=== PATIENT | female | born 1940 | race Caucasian/White ===

== ENCOUNTER 2021-12-22 09:52 | Observation (INO) ==
[2021-12-22] MEDS ORDERED: IOPAMIDOL 100 ML BOTTLE IV ONE (09:53)
--- NOTE | 2021-12-22 09:55 | Emergency Department Note ---
HPI General Chief complaint: Neuro Symptoms/Deficit Stated complaint: cognative issues Time Seen by Provider: 12/22/21 09:55 Source: patient and family (Granddaughter) Mode of arrival: ambulatory Limitations: other (Expressive aphasia) History of Present Illness HPI Narrative: Narrative: History is primarily from the patient's granddaughter. Patient was able to answer a few limited questions. 3 days ago on Friday patient was unable to start her car initially her son thought it was a mechanical issue but then realized later that it was the patient having difficulties figuring out how to start the car or manually starting the car. Last night 1 day ago a neighbor said that the patient called but he had difficulty making sense of what she was saying. The son went over and performed a Covid test and that was negative. The granddaughter spoke to her and recognize she was having cognitive issues. She was taken last night to the urgent care according to the granddaughter where they were told he needed to come to the emergency department. Patient denies any pain associated with this. Symptoms are constant and either stable or worse with time. Nothing makes it better. Not associated with any kn own trauma. No associated weakness in the upper or lower extremities. The daughter states the patient is healthy and has no significant medical problems. Review of the chart reveals obstructive sleep apnea, cardiac murmur, hyperlipidemia, hypertension, GERD, osteoporosis. Related Data Home Medications Medication Instructions Recorded Confirmed Flaxseed PO 09/29/15 09/26/21 Wheat germ PO 09/29/15 09/26/21 ascorbate calcium (vitamin C) 500 See Dose Instructions PO .COMPLEX 09/29/15 09/26/21 mg tablet harding's yeast PO 09/29/15 09/26/21 cholecalciferol (vitamin D3) 25 1,000 unit PO QDAY 09/29/15 09/26/21 mcg (1,000 unit) capsule cyanocobalamin (vitamin B-12) 500 500 mcg PO QDAY 09/29/15 09/26/21 mcg tablet magnesium PO 09/29/15 09/26/21 multivitamin 1 tab-cap PO QDAY 09/29/15 09/26/21 vitamin B complex See Dose Instructions PO .COMPLEX 09/29/15 09/26/21 bran each PO 04/03/20 09/26/21 whey protein conc-amino acids 20 ea PO 02/28/21 09/26/21 gram-120 kcal/27.6 gram oral powder melatonin 5 mg capsule mg PO 07/18/21 09/26/21 Previous Rx's Medication Instructions Recorded zolpidem 5 mg tablet (Ambien) 5 mg PO ONCE PRN #2 tab 10/24/21 Allergies Allergy/AdvReac Type Severity Reaction Status Date / Time Penicillins Allergy Severe Urticarial Verified 09/26/21 08:19 eruption risedronate sodium Allergy Severe chest Verified 09/26/21 08:19 [From Actonel] pain/foot pain/gingival pain/flu sxs Review of Systems ROS ROS Narrative: Narrative: Limitations: ROS unobtainable due to patients medical condition (Patient has expressive aphasia.) [facility] Narrative Patient History Narrative: Narrative: Medical/Surgical/Family History All Active Problems (Updated 12/22/21 @ 14:57 by Feliberto Harden MD) Expressive aphasia (Acute) Neck pain on left side (Chronic) Nasal polyps (Chronic) Obstructive sleep apnea (Chronic) Gasping for breath (Chronic) Hypersomnia (Chronic) Pain of right hip (Acute) Murmur, cardiac (Acute) Immunization deficiency (Acute) Mixed hyperlipidemia (Acute) Insomnia (Chronic) Pancreatitis (Chronic) Migraines (Chronic) High blood pressure (Chronic) Chest discomfort (Chronic ~2019) Anxiety (Chronic ~2006) Post herpetic neuralgia (Chronic) GERD (gastroesophageal reflux disease) (Chronic) Fall from slip, trip, or stumble (Chronic) Contusion of forehead (Chronic) Abrasion of forehead (Chronic) Contusion of knee, left (Chronic) Contusion of knee, right (Chronic) Vitamin D deficiency (Chronic) Osteoarthritis (Chronic) Female genital prolapse (Chronic) Encounter for Health Maintenance Examination in Adult (Chronic) Osteoporosis (Chronic) Neck pain (Chronic) Migraine (Chronic) Hiatal hernia (Chronic) Hemorrhoids (Chronic) Esophageal stricture (Chronic) Medical History Abrasion of forehead Anxiety (~2006) Pt states she has been in a lawsuit since 2006 and that has caused much anxiety. Chest discomfort (~2019) Contusion of forehead Contusion of knee, left Contusion of knee, right Encounter for Health Maintenance Examination in Adult Esophageal stricture Seen on EGD 02/2009; stable with hygienic measures. Fall from slip, trip, or stumble Female genital prolapse Gasping for breath GERD (gastroesophageal reflux disease) Hemorrhoids Colonoscopy 07/03/11-Dr. Medley-Inflamed inernal hemorrhoids; otherwise normal colon, No rescreen unless new clinical issues arises. Herpes zoster s/p episode in 2008 Hiatal hernia EGD 02/2009 showing hiatal hernia;stable with hygienic measures. High blood pressure Hypersomnia Immunization deficiency Insomnia Migraine Hx of migraine headaches;usually takes #2 tylenol and #1 Benadryl. Migraines Murmur, cardiac Neck pain Cervical neck pain. Obstructive sleep apnea Osteoarthritis Osteoporosis By bone density 04/2009 with T-score at spine -3.8 and hip -1.3, stable vitamin D level at 68.0 in 2009. Declines rescreening or further medicine. Pain of right hip Pancreatitis Post herpetic neuralgia Vitamin D deficiency Surgical History History of tonsillectomy x2- 1944 and 1960 Hx of cataract surgery 08/2011-Bilateral done at [facility]. Hx of colonoscopy (07/03/11) Showed only hemorrhoids. No need to rescreen unless clinical issues. Hx of esophagogastroduodenoscopy (03/15/09) Showing hiatal hernia, esophagitis, and small stricure. Family History Mother Malignant neoplasm of lung Asbestosis and lung cancer, was a non-smoker High cholesterol Sister Diabetes mellitus Half sister insulin-dependent High cholesterol Heart attack Social History Smoking Status: Never smoker Alcohol Intake Frequency: does not drink Substance Use: does not use Exam Narrative Narrative: Narrative: General is a well-developed elderly female lying in bed calmly in no apparent distress. She was able to answer a couple of straightforward questions such as her name but beyond that she struggled to communicate. When asked her name she said Mindi. When asked the date she struggled and did not answer. When asked to the president was she struggled and did not answer. I did not detect any facial weakness nor weakness in the upper or lower extremities left or right. General Limitations: other (Expressive aphasia) General appearance: Present alert and in distress Head Head: Present atraumatic and normocephalic Neck Neck: Present normal inspection, full ROM, trachea midline and other (I did not hear any carotid bruits.); Absent tenderness or meningismus Chest Chest: Present normal inspection and symmetric chest wall rise; Absent tenderness Respiratory Respiratory: Present normal lung sounds bilaterally; Absent respiratory distress Cardiovascular Cardiovascular: Present regular rate, normal rhythm and systolic murmur (III/) Adbominal Abdominal: Present soft; Absent distention or tenderness Extremities Extremities: Present normal inspection and other (Ambulated. No discernible weakness in upper extremity vp outcomes or lower extremity push pull.) Neurological Neurological: Present alert and other (Unable to express herself. Unable to answer simple questions beyond what her name was.) Psychiatric Psychiatric: Present normal affect Skin Skin: Present warm (WNL) and dry Course Reevaluation(s) Reevaluation #1: Patient feeling the same. Reviewed lab and CT results with patient and granddaughter. Advised that I would speak to the hospitalist regarding possible admission. Time: 13:21 Consultations Consultation #1: Please call to hospitalist to discuss admission of this patient with acute expressive aphasia. Time: 13:21 Consultation #2: Discussed with Dr. waters the hospitalist. He requested I order a CT angio of the head and neck to rule out large vessel occlusion and that he will evaluate the patient for admission subsequently. Time: 13:49 Vital Signs Vital signs: Vital Signs Temperature 97.6 F 12/22/21 09:53 Pulse Rate 79 12/22/21 09:53 Respiratory Rate 16 12/22/21 09:53 Pulse Oximetry (%) 95 12/22/21 09:53 Temperature 97.7 F 12/22/21 16:05 Pulse Rate 61 12/22/21 16:06 Respiratory Rate 13 12/22/21 16:06 Blood Pressure 175/90 12/22/21 16:05 Pulse Oximetry (%) 96 12/22/21 16:06 [facility] Narrative Medical decision making narrative: Narrative: Elderly female with 3-day history of neurological difficulties presents to the emerge department for further evaluation. She was unable to start her car for noncar reasons. She is unable to answer nearly all questions. Differential diagnosis includes acute cerebrovascular accident, intracranial bleed, brain tumor, metabolic abnormality, encephalopathy, other EKG was obtained and it was unremarkable. CT scan did not reveal problem: IMPRESSION: Age-related degenerative changes with atrophy and white matter ischemia or degeneration. No acute abnormality is detected Urinalysis was negative. Fast exam was negative. NIHSS score was 1. Troponin was less than 0.01. Sodium was 136 potassium 3.9 chloride 101 and bicarb 24. BUN was 21 creatinine was 0.6. Glucose was 103. WBC was 8.4 with a hemoglobin of 17.5. My impression is the patient has an acute expressive aphasia. Case was discussed with the hospitalist. He requested a CT angio of the head and neck. Those were performed and both came back showing clear vessels. Case was discussed with the hospitalist again and he agreed to come down to the emerge department to evaluate the patient for admission. Lab Data Result diagrams: 12/22/21 10:25 12/22/21 10:24 Labs: Lab Results 12/22/21 12/22/21 12/22/21 Range/Units 10:24 10:25 10:25 WBC 8.4 (4.5-11.0) K/mcL RBC 5.31 (3.59-5.38) M/mcL Hgb 17.5 H (11.2-15.7) g/dL Hct 51.7 H (34.1-44.9) % MCV 97.4 (80.0-100.0) fL MCH 33.0 (26.0-34.0) pg MCHC 33.8 (31.0-36.0) g/dL RDW 12.4 (11.5-14.5) % Plt Count 151 (140-440) K/mcL MPV 13.1 H (7.4-10.4) fL Neut % (Auto) 77.7 (38.0-78.0) % Lymph % (Auto) 16.2 (15.5-49.0) % [place] % (Auto) 5.3 (1.0-12.0) % Eos % (Auto) 0.1 (0.0-7.0) % Baso % (Auto) 0.7 (0.0-2.0) % Lymph # (Auto) 1.36 L (1.50-4.80) K/mcL [place] # (Auto) 0.44 (0.10-0.90) K/mcL Eos # (Auto) 0.01 (0.00-0.70) K/mcL Baso # (Auto) 0.06 (0.00-0.30) K/mcL Absolute Neutrophils 6.50 (1.80-8.00) K/mcL POC PT 12.7 (11.9-14.5) sec PT 13.3 (11.9-14.5) sec POC INR 1.1 (0.8-1.2) INR 1.0 (0.9-1.1) APTT 29.3 (20.0-37.0) sec Sodium 136 (133-145) mmol/L Potassium 3.9 (3.3-5.1) mmol/L Chloride 101 (96-108) mmol/L Carbon Dioxide 24 (22-30) mmol/L Anion Gap 11.0 (8.0-16.0) BUN 21 (8-23) mg/dL Creatinine 0.6 (0.6-1.1) mg/dL GFR Calculation 85 Glucose 103 (70-105) mg/dL Calcium 9.7 (8.6-10.4) mg/dL Total Bilirubin 0.8 (0.1-1.0) mg/dL AST 19 (<32) U/L ALT 18 (<40) U/L Alkaline Phosphatase 109 (39-117) U/L Troponin T (<0.03) ng/mL Total Protein 7.2 (5.9-8.4) gm/dL Albumin 4.5 (3.2-5.2) gm/dL Globulin 2.7 (2.2-3.7) gm/dL Albumin/Globulin Ratio 1.7 (1.0-2.3) Urine Color Urine Appearance (Clear) Urine pH (5.0-9.0) Ur Specific [place] (1.000-1.035) Urine Protein (Negative) mg/dL Urine Glucose (UA) (Negative) mg/dL Urine Ketones (Negative) mg/dL Urine Occult Blood (Negative) mg/dL Urine Nitrate (Negative) Urine Bilirubin (Negative) mg/dL Urine Urobilinogen mg/dL Ur Leukocyte Esterase (Negative) /uL Urine RBC (0-3) /hpf Urine WBC (0-4) /hpf Ur Squamous Epith Cells (0-4) /hpf Urine Bacteria (0) /hpf Ur Culture Indicated? 12/22/21 12/22/21 Range/Units 10:25 11:07 WBC (4.5-11.0) K/mcL RBC (3.59-5.38) M/mcL Hgb (11.2-15.7) g/dL Hct (34.1-44.9) % MCV (80.0-100.0) fL MCH (26.0-34.0) pg MCHC (31.0-36.0) g/dL RDW (11.5-14.5) % Plt Count (140-440) K/mcL MPV (7.4-10.4) fL Neut % (Auto) (38.0-78.0) % Lymph % (Auto) (15.5-49.0) % [place] % (Auto) (1.0-12.0) % Eos % (Auto) (0.0-7.0) % Baso % (Auto) (0.0-2.0) % Lymph # (Auto) (1.50-4.80) K/mcL [place] # (Auto) (0.10-0.90) K/mcL Eos # (Auto) (0.00-0.70) K/mcL Baso # (Auto) (0.00-0.30) K/mcL Absolute Neutrophils (1.80-8.00) K/mcL POC PT (11.9-14.5) sec PT (11.9-14.5) sec POC INR (0.8-1.2) INR (0.9-1.1) APTT (20.0-37.0) sec Sodium (133-145) mmol/L Potassium (3.3-5.1) mmol/L Chloride (96-108) mmol/L Carbon Dioxide (22-30) mmol/L Anion Gap (8.0-16.0) BUN (8-23) mg/dL Creatinine (0.6-1.1) mg/dL GFR Calculation Glucose (70-105) mg/dL Calcium (8.6-10.4) mg/dL Total Bilirubin (0.1-1.0) mg/dL AST (<32) U/L ALT (<40) U/L Alkaline Phosphatase (39-117) U/L Troponin T < 0.01 (<0.03) ng/mL Total Protein (5.9-8.4) gm/dL Albumin (3.2-5.2) gm/dL Globulin (2.2-3.7) gm/dL Albumin/Globulin Ratio (1.0-2.3) Urine Color Straw Urine Appearance Clear (Clear) Urine pH 6.0 (5.0-9.0) Ur Specific [place] 1.005 (1.000-1.035) Urine Protein Negative (Negative) mg/dL Urine Glucose (UA) Negative (Negative) mg/dL Urine Ketones Negative (Negative) mg/dL Urine Occult Blood 0.03 (Negative) mg/dL Urine Nitrate Negative (Negative) Urine Bilirubin Negative (Negative) mg/dL Urine Urobilinogen Negative mg/dL Ur Leukocyte Esterase Negative (Negative) /uL Urine RBC < 1 (0-3) /hpf Urine WBC 1 (0-4) /hpf Ur Squamous Epith Cells 1 (0-4) /hpf Urine Bacteria None (0) /hpf Ur Culture Indicated? No ED POC Tests ED POC Tests: JR - SARS Antigen Negative Radiology Data Radiology results reviewed: Yes I reviewed the patient's radiology results. Radiology results narrative: IMPRESSION: Age-related degenerative changes with atrophy and white matter ischemia or degeneration. No acute abnormality is detected EKG Data EKG #1: EKG attestation: Yes I reviewed and interpreted this EKG. EKG shows normal: sinus rhythm, axis, intervals, QRS complexes and ST-T waves Rate: normal Rhythm: NSR [place]/QRS: normal Voltage: normal Heart block present: None ST segment elevation in: None ST segment depression in: None T wave inversions noted in: III Hyperacute T waves: None QRS morphology: Present normal Interpretation: normal EKG Discharge Plan Patient/Caregiver Discharge Instructions Pt seen by SILK TRIMMER/PA only: No Clinical Impression: Expressive aphasia Patient Disposition: Xfer As Inpt ([facility]) Condition: Fair
[2021-12-22 10:29] LABS: POC INR 1.1 (0.8-1.2); POC Pro Time 12.7 sec (11.9-14.5)
--- NOTE | 2021-12-22 10:55 | Cat Scan Report ---
History: Acute stroke symptoms with neurologic deficit and confusion TECHNIQUE: The brain was imaged without contrast in axial plane at 2.5 mm intervals. Sagittal and coronal reformats were created. The radiation exposure was limited using dose reduction technology. FINDINGS: There is mild generalized atrophy. Moderate white matter disease is present with confluent areas of abnormal decreased attenuation throughout the frontal and parietal lobes. No cortical or basal ganglia infarct is detected. There is no hemorrhage or mass effect. The ventricles are normal in size. No abnormal extra-axial fluid collection is present. There are several calcified plaques in the cavernous portions of both internal carotids. No prior study is available for comparison. IMPRESSION: Age-related degenerative changes with atrophy and white matter ischemia or degeneration. No acute abnormality is detected. Dr. Harden was called with the report Interpreted and Authenticated by: Corey Bonds 12/22/21
[2021-12-22 11:06] LABS: Basophils # (Auto) 0.06 K/mcL (0.00-0.30); Basophils % (Auto) 0.7 % (0.0-2.0); Eosinophils # (Auto) 0.01 K/mcL (0.00-0.70); Eosinophils % (Auto) 0.1 % (0.0-7.0); Hematocrit 51.7 % (34.1-44.9); Hemoglobin 17.5 g/dL (11.2-15.7); Lymphocytes # (Auto) 1.36 K/mcL (1.50-4.80); Lymphocytes % (Auto) 16.2 % (15.5-49.0); Mean Cell Volume 97.4 fL (80.0-100.0); Mean Corpuscular HGB Conc 33.8 g/dL (31.0-36.0); Mean Platelet Volume 13.1 fL (7.4-10.4); Monocytes # (Auto) 0.44 K/mcL (0.10-0.90); Monocytes % (Auto) 5.3 % (1.0-12.0); Neutrophils % (Auto) 77.7 % (38.0-78.0); Platelet Count 151 K/mcL (140-440); RBC 5.31 M/mcL (3.59-5.38); Red Cell Distribution Width 12.4 % (11.5-14.5); WBC 8.4 K/mcL (4.5-11.0)
[2021-12-22 11:14] LABS: Partial Thromboplastin Time 29.3 sec (20.0-37.0); Prothrombin Time 13.3 sec (11.9-14.5)
[2021-12-22 11:22] LABS: ALT/SGPT 18 U/L (<40); AST/SGOT 19 U/L (<32); Albumin 4.5 gm/dL (3.2-5.2); Albumin/Globulin Ratio 1.7 (1.0-2.3); Alkaline Phosphatase 109 U/L (39-117); Bilirubin,Total 0.8 mg/dL (0.1-1.0); Blood Urea Nitrogen 21 mg/dL (8-23); Calcium 9.7 mg/dL (8.6-10.4); Carbon Dioxide 24 mmol/L (22-30); Chloride 101 mmol/L (96-108); Globulin 2.7 gm/dL (2.2-3.7); Glomerular Filtration Rate 85; Glucose 103 mg/dL (70-105)
[2021-12-22 12:01] LABS: Appearance,Urine CLEAR (Clear); Bilirubin,Urine Negative (Negative); Color,Urine STRAW; Culture Indicated,Urine No; Glucose,Urine (UA) Negative (Negative); Ketones,Urine Negative (Negative); Leukocyte Esterase,Urine Negative /uL (Negative); Nitrate,Urine Negative (Negative); Protein,Urine Negative (Negative); Specific Gravity,Urine 1.005 (1.000-1.035); Urine Blood 0.03 mg/dL (Negative); Urine RBC < 1 /hpf (0-3); Urine Squamous Epithelial Cell 1 /hpf (0-4); Urine WBC 1 /hpf (0-4); Urobilinogen,Urine Negative
[2021-12-22] MEDS ORDERED: ASPIRIN 81 MG TAB.CHEW CHEWED ONE (14:25)
--- NOTE | 2021-12-22 14:55 | Cat Scan Report ---
History: Acute neurologic deficit with confusion TECHNIQUE: Following injection of intravenous nonionic contrast, arterial phase images were acquired from the ascending aorta to the top of the head. Sagittal and coronal reformats were created along with 3-D volume rendered images and curved linear reformatted views. Radiation exposure was limited using dose reduction technology. FINDINGS: Neck: The aortic arch and great vessels arising from the aorta are normal in caliber. There is minimal plaque formation along the aorta. There is no aneurysm or dissection of the aorta. The common carotids, internal and external carotid arteries are normal in caliber. There is no plaque formation stenosis or dissection. The vertebral arteries are also normal in caliber and symmetric. There is severe disc space narrowing at C4-5 and moderate narrowing at C5-6 and C6-7. Arthritis is present in the facets bilaterally in the mid cervical spine. Brain: The petrous, cavernous and supraclinoid portions of both internal carotids are normal in caliber and there is no plaque formation. The anterior, middle and posterior cerebral arteries are normal and symmetric. The intracranial vertebral arteries and basilar artery are normal. Posterior fossa circulation is normal. There is no intracranial thrombosis or stenosis. No aneurysm or vascular malformation are present. There is a large left posterior communicating artery providing much the blood flow to the left posterior cerebral. Anterior communicating arteries also large. Right posterior communicating artery is small. IMPRESSION: Normal exam Dr. Harden was called with the report Interpreted and Authenticated by: Corey Bonds 12/22/21
[2021-12-22] MEDS ORDERED: 0.9 % SODIUM CHLORIDE 1,000 ML IV SCH (15:00)
--- NOTE | 2021-12-22 15:21 | Internal Med History&Physical ---
HPI History of Present Illness Patient information: Note initiated : 12/22/21 at 3:19 pm Service Date, if different from initiated Date: [] Patient: Mindi Holly a 81 y/o F admitted on for cognitive issues. Chief Complaint: [] History of present illness: Ms. Holly is a 81 year old F Presents the ED with cognitive issues for 3 days including unable to figure out how to start her car. Yesterday neighbor saw the patient was not making sense when speaking. Sent over due to Covid test that was negative. Brought to the urgent care last night they told her she needed to go to the ED. In the ED she was found to be hypertensive on admission with systolic of 183. She is felt to have expressive aphasia. CT of the head noncontrast with age-related degeneration and white matter ischemic disease. CTA head/neck no significant stenosis. Urinalysis unremarkable. EKG with sinus rhythm. Review of Systems: Pertinent positives as above. Denies headache/fever/chills/nausea/vomiting/chest or abdominal pain/cough/dyspnea/di arrhea. Remaining 10 point review of system reviewed negative. PFSH PFSH All Active Problems (Updated 12/22/21 @ 14:57 by Feliberto Harden MD) Expressive aphasia (Acute) Neck pain on left side (Chronic) Nasal polyps (Chronic) Obstructive sleep apnea (Chronic) Gasping for breath (Chronic) Hypersomnia (Chronic) Pain of right hip (Acute) Murmur, cardiac (Acute) Immunization deficiency (Acute) Mixed hyperlipidemia (Acute) Insomnia (Chronic) Pancreatitis (Chronic) Migraines (Chronic) High blood pressure (Chronic) Chest discomfort (Chronic ~2019) Anxiety (Chronic ~2006) Post herpetic neuralgia (Chronic) GERD (gastroesophageal reflux disease) (Chronic) Fall from slip, trip, or stumble (Chronic) Contusion of forehead (Chronic) Abrasion of forehead (Chronic) Contusion of knee, left (Chronic) Contusion of knee, right (Chronic) Vitamin D deficiency (Chronic) Osteoarthritis (Chronic) Female genital prolapse (Chronic) Encounter for Health Maintenance Examination in Adult (Chronic) Osteoporosis (Chronic) Neck pain (Chronic) Migraine (Chronic) Hiatal hernia (Chronic) Hemorrhoids (Chronic) Esophageal stricture (Chronic) Medical History Abrasion of forehead Anxiety (~2006) Pt states she has been in a lawsuit since 2006 and that has caused much anxiety. Chest discomfort (~2018) Contusion of forehead Contusion of knee, left Contusion of knee, right Encounter for Health Maintenance Examination in Adult Esophageal stricture Seen on EGD 02/2009; stable with hygienic measures. Fall from slip, trip, or stumble Female genital prolapse Gasping for breath GERD (gastroesophageal reflux disease) Hemorrhoids Colonoscopy 07/03/11-Dr. Medley-Inflamed inernal hemorrhoids; otherwise normal colon, No rescreen unless new clinical issues arises. Herpes zoster s/p episode in 2008 Hiatal hernia EGD 02/2009 showing hiatal hernia;stable with hygienic measures. High blood pressure Hypersomnia Immunization deficiency Insomnia Migraine Hx of migraine headaches;usually takes #2 tylenol and #1 Benadryl. Migraines Murmur, cardiac Neck pain Cervical neck pain. Obstructive sleep apnea Osteoarthritis Osteoporosis By bone density 04/2009 with T-score at spine -3.8 and hip -1.3, stable vitamin D level at 68.0 in 2009. Declines rescreening or further medicine. Pain of right hip Pancreatitis Post herpetic neuralgia Vitamin D deficiency Surgical History History of tonsillectomy x2- 1944 and 1960 Hx of cataract surgery 08/2011-Bilateral done at [facility]. Hx of colonoscopy (07/03/11) Showed only hemorrhoids. No need to rescreen unless clinical issues. Hx of esophagogastroduodenoscopy (03/15/09) Showing hiatal hernia, esophagitis, and small stricure. Family History Mother Malignant neoplasm of lung Asbestosis and lung cancer, was a non-smoker High cholesterol Sister Diabetes mellitus Half sister insulin-dependent High cholesterol Heart attack Social History household members: alone housing: house lives independently: Yes marital status: occupational status: retired occupation: Self [employer] other: 3 children smoking status: Never smoker alcohol intake frequency: does not drink substance use type: does not use MEDS/ALLERGIES Home Medications and Allergies Home Medications Medication Instructions Recorded Confirmed Type Flaxseed PO 09/29/15 09/26/21 History Wheat germ PO 09/29/15 09/26/21 History ascorbate calcium (vitamin C) 500 See Dose Instructions PO .COMPLEX 09/29/15 09/26/21 History mg tablet harding's yeast PO 09/29/15 09/26/21 History cholecalciferol (vitamin D3) 25 1,000 unit PO QDAY 09/29/15 09/26/21 History mcg (1,000 unit) capsule cyanocobalamin (vitamin B-12) 500 500 mcg PO QDAY 09/29/15 09/26/21 History mcg tablet magnesium PO 09/29/15 09/26/21 History multivitamin 1 tab-cap PO QDAY 09/29/15 09/26/21 History vitamin B complex See Dose Instructions PO .COMPLEX 09/29/15 09/26/21 History bran each PO 04/03/20 09/26/21 History whey protein conc-amino acids 20 ea PO 02/28/21 09/26/21 History gram-120 kcal/27.6 gram oral powder melatonin 5 mg capsule mg PO 07/18/21 09/26/21 History zolpidem 5 mg tablet (Ambien) 5 mg PO ONCE PRN #2 tab 10/24/21 Rx Allergies Allergy/AdvReac Type Severity Reaction Status Date / Time Penicillins Allergy Severe Urticarial Verified 09/26/21 08:19 eruption risedronate sodium Allergy Severe chest Verified 09/26/21 08:19 [From Actonel] pain/foot pain/gingival pain/flu sxs EXAM Constitutional Vitals: Temp Pulse Resp BP Pulse Ox 97.6 F 63 15 156/70 97 12/22/21 09:53 12/22/21 14:01 12/22/21 14:01 12/22/21 14:01 12/22/21 14:01 Exam: General: Alert, Awake, No acute Distress Eyes/N/T: EOMI, PERRL,dry MM Head/Neck: neck supple, normocephalic atraumatic CV: RRR, No murmurs, normal s1/s2 Pulm: Clear b/l, no wheezing/rhonchi/rales Abd: soft, nontender, +BS x4 Ext: no clubbing/cyanosis/edema Neuro: Alert, face symmetrical no pronator drift, symmetrical strength b/l upper/lower, sensations intact b/l upper/lower. Comprehension appears to be intact. She is able to speak clearly although very minimally and she is quite slow to get the words out. skin: warm/dry DATA Data Completed and Pending Labs: Labs from last 24 hours 12/22/21 12/22/21 12/22/21 11:07 10:25 10:25 WBC RBC Hgb Hct MCV MCH MCHC RDW Plt Count MPV Neut % (Auto) Lymph % (Auto) [place] % (Auto) Eos % (Auto) Baso % (Auto) Lymph # (Auto) [place] # (Auto) Eos # (Auto) Baso # (Auto) Absolute Neutrophils POC PT 12.7 PT 13.3 POC INR 1.1 INR 1.0 APTT 29.3 Sodium Potassium Chloride Carbon Dioxide Anion Gap BUN Creatinine GFR Calculation Glucose Calcium Total Bilirubin AST ALT Alkaline Phosphatase Troponin T < 0.01 Total Protein Albumin Globulin Albumin/Globulin Ratio Urine Color Straw Urine Appearance Clear Urine pH 6.0 Ur Specific [place] 1.005 Urine Protein Negative Urine Glucose (UA) Negative Urine Ketones Negative Urine Occult Blood 0.03 Urine Nitrate Negative Urine Bilirubin Negative Urine Urobilinogen Negative Ur Leukocyte Esterase Negative Urine RBC < 1 Urine WBC 1 Ur Squamous Epith Cells 1 Urine Bacteria None Ur Culture Indicated? No 12/22/21 12/22/21 10:25 10:24 WBC 8.4 RBC 5.31 Hgb 17.5 H Hct 51.7 H MCV 97.4 MCH 33.0 MCHC 33.8 RDW 12.4 Plt Count 151 MPV 13.1 H Neut % (Auto) 77.7 Lymph % (Auto) 16.2 [place] % (Auto) 5.3 Eos % (Auto) 0.1 Baso % (Auto) 0.7 Lymph # (Auto) 1.36 L [place] # (Auto) 0.44 Eos # (Auto) 0.01 Baso # (Auto) 0.06 Absolute Neutrophils 6.50 POC PT PT POC INR INR APTT Sodium 136 Potassium 3.9 Chloride 101 Carbon Dioxide 24 Anion Gap 11.0 BUN 21 Creatinine 0.6 GFR Calculation 85 Glucose 103 Calcium 9.7 Total Bilirubin 0.8 AST 19 ALT 18 Alkaline Phosphatase 109 Troponin T Total Protein 7.2 Albumin 4.5 Globulin 2.7 Albumin/Globulin Ratio 1.7 Urine Color Urine Appearance Urine pH Ur Specific [place] Urine Protein Urine Glucose (UA) Urine Ketones Urine Occult Blood Urine Nitrate Urine Bilirubin Urine Urobilinogen Ur Leukocyte Esterase Urine RBC Urine WBC Ur Squamous Epith Cells Urine Bacteria Ur Culture Indicated? A/P Narrative A/P Narrative: A: *Stroke-like symptoms (expressive aphasia): -ABCD=5 *Hypertensive: Likely 2/2 above, not on home BP medications although I see HTN reported in her PMH *PARAM, mild: awaiting sleep study to get cpap machine P: -Permissive hypertension 24-48 -ASA/Statin -MRI, echo pending -neurochecks -lipid panel -pt/ot/st eval -ppx: lovenox Time Spent With Patient Time: Total time spent is greater than 50% in coordination of care (as documented) at patient's floor/unit and/or counseling patient:
[2021-12-22] MEDS ORDERED: LABETALOL 5 MG/ML ML IV PRN ×2 (15:24→17:31)
--- NOTE | 2021-12-22 15:36 | Magnetic Resonance Report ---
History: New stroke symptoms, weakness, cognitive decline TECHNIQUE: Stroke protocol was performed using multiple pulse sequences. FINDINGS: The diffusion sequence reveals the presence of a small acute nonhemorrhagic infarct in the cortex in a deep sulcus. It Involves the precentral gyrus of the left frontal lobe. It measures 5 x 5 mm and is seen on series 4 image 21. No other infarct is present. There is no hemorrhage or evidence of neoplasm. The T2 FLAIR images reveal multiple patchy areas of abnormal high signal in the white matter throughout the centrum semiovale in the frontal and parietal lobes. These are low attenuation in the prior CT scan. Mild atrophy is present. The ventricles are normal in size. There is no abnormal extra-axial fluid collection. Incidentally noted is a mucous retention cyst along the roof of the right maxillary sinus. IMPRESSION: 5 mm nonhemorrhagic acute infarct in the precentral gyrus of the right frontal lobe Dr. Odell was called with the report Interpreted and Authenticated by: Corey Bonds 12/22/21
[2021-12-22] MEDS ORDERED: POLYETHYLENE GLYCOL 3350 17 GM PACKET PO PRN (16:05)
[2021-12-22] MEDS ORDERED: MAGNESIUM SULFATE 2 GM/50 ML BAG IV PRN (16:05)
[2021-12-22] MEDS ORDERED: ACETAMINOPHEN 325 MG TABLET PO PRN (16:05)
[2021-12-22] MEDS ORDERED: IPRATROPIUM/ALBUTEROL 3 ML AMPUL.NEB NEB PRN (16:05)
[2021-12-22] MEDS ORDERED: POTASSIUM CHLORIDE 40 MEQ in DEXTROSE 5% IN WATER 500 ML IV PRN (16:05)
[2021-12-22] MEDS ORDERED: ONDANSETRON 4 MG/2 ML VIAL IV PRN (16:05)
[2021-12-22] MEDS ORDERED: SENNOSIDES 1 TABLET PO PRN (16:05)
[2021-12-22] MEDS ORDERED: POTASSIUM CHLORIDE 20 MEQ TABLET PO PRN ×2 (16:05)
[2021-12-22 16:26] LABS: HDL Cholesterol 51 mg/dL (>40); LDL Cholesterol,Calculated 158 mg/dL (<100); Non-HDL Cholesterol 178 mg/dL (<130); Triglycerides 105 mg/dL (<150)
[2021-12-22] MEDS ORDERED: ATORVASTATIN 40 MG TABLET PO SCH (21:00)
[2021-12-22] MEDS: ATORVASTATIN 40 MG TABLET PO SCH (21:45)
[2021-12-22] MEDS: DOCUSATE SODIUM 100 MG CAPSULE PO SCH (21:46)
[2021-12-22] MEDS: 0.9 % SODIUM CHLORIDE 10 ML SYRINGE IV SCH (21:46)
--- NOTE | 2021-12-23 07:58 | Internal Med Progress Note ---
SUBJECTIVE Subjective Patient information: Note initiated : 12/23/21 at 7:56 am Service Date, if different from initiated Date: [] Patient: Mindi Holly 81 y/o F admitted on 12/22/21 for cognitive issues. Chief Complaint: [] Interval history: History of present illness: Ms. Holly is a 81 year old F Presents the ED with cognitive issues for 3 days including unable to figure out how to start her car. Yesterday neighbor saw the patient was not making sense when speaking. Sent over due to Covid test that was negative. Brought to the urgent care last night they told her she needed to go to the ED. In the ED she was found to be hypertensive on admission with systolic of 183. She is felt to have expressive aphasia. CT of the head noncontrast with age-related degeneration and white matter ischemic disease. CTA head/neck no significant stenosis. Urinalysis unremarkable. EKG with sinus rhythm. 3/ Patient with some bradycardia into the 40s but asymptomatic. Speech better today. Patient feeling better. Review of Systems: denies headache/fever/chills/nausea/vomiting/chest or abdominal pain/cough/dyspnea/diarrhea. Otherwise see above. Constitutional Vitals: Vital Signs Temp Pulse Resp BP Pulse Ox 97.7 F 52 L 16 132/60 94 12/22/21 16:05 12/23/21 06:18 12/23/21 06:18 12/23/21 06:01 12/23/21 06:18 Period Temp Pulse Resp BP Sys/Valadez Pulse Ox Last 24 Hr 97.6 F-97.7 F 42-85 10-19 98-204/55-102 94-100 Intake and Output 12/22/21 12/23/21 12/23/21 21:59 05:59 13:59 Intake Total 240 1000 Balance 240 1000 Weight 55.883 kg Intake & Output: Intake & Output 12/22/21 12/23/21 12/23/21 21:59 05:59 13:59 Intake Total 240 1000 Balance 240 1000 Weight 55.883 kg Intake: IV 1000 Sodium Chloride 0.9% 1,000 ml @ 1000 125 mls/hr IV .Q8H [facility] Rx#: [id number] Oral 240 Other: Meal Dinner Percent of Meal Consumed 100% Feeding Ability Independent Exam: General: Alert, Awake, No acute Distress Eyes/N/T: EOMI, Head/Neck: neck supple, CV: RRR, No murmurs, Pulm: Clear b/l, no wheezing/rhonchi/rales Abd: soft, nontender, +BS x4 Ext: no clubbing/cyanosis/edema Neuro: Alert, face symmetrical no pronator drift, Comprehension appears to be intact. Expressive aphasia improving skin: warm/dry OBJ DATA Labs CBC & Chem 7: 12/22/21 10:25 12/22/21 10:24 Labs: Abnormal Lab Results 12/22/21 12/22/21 10:25 10:24 Hgb 17.5 H Hct 51.7 H MPV 13.1 H Lymph # (Auto) 1.36 L Cholesterol 229 H LDL Cholesterol, Calc 158 H Non-HDL Cholesterol 178 H Meds: Medications Acetaminophen (Acetaminophen 325 Mg Tablet) 650 mg PO Q6HP PRN; Protocol PRN Reason: Per Pain Protocol/Fever > 101 Albuterol/Ipratropium (Ipratropium/Albuterol 3 Ml Ampul.Neb) 3 ml NEB Q4HP PRN PRN Reason: Shortness Of Breath Aspirin (Aspirin 81 Mg Tab.Chew) 81 mg PO DAILY [facility] Atorvastatin Calcium (Atorvastatin 40 Mg Tablet) 80 mg PO HS [facility] Last Admin: 12/22/21 21:45 Dose: 80 mg Documented by: Docusate Sodium (Docusate Sodium 100 Mg Capsule) 100 mg PO BID [facility] Last Admin: 12/22/21 21:46 Dose: Not Given Documented by: Enoxaparin Sodium (Enoxaparin 40 Mg/0.4 Ml Syringe) 40 mg SQ DAILY [facility] Potassium Chloride 40 meq/ (Dextrose) 520 mls @ 130 mls/hr IV UD PRN PRN Reason: Potassium < 3 Magnesium Sulfate (Magnesium Sulfate) 2 gm in 50 mls @ 50 mls/hr IV UD PRN PRN Reason: Magnesium </= 1.6 Labetalol HCl (Labetalol 5 Mg/Ml Ml) 0 mg IV Q2HP PRN PRN Reason: Hypertension Ondansetron HCl (Ondansetron 4 Mg/2 Ml Vial) 4 mg IV Q4HP PRN PRN Reason: Nausea And Vomiting Polyethylene Glycol (Polyethylene Glycol 3350 17 Gm Packet) 17 gm PO DAILYP PRN PRN Reason: Constipation Potassium Chloride (Potassium Chloride 20 Meq Tablet) 40 meq PO UD PRN PRN Reason: Potssium is 3-3.5 Potassium Chloride (Potassium Chloride 20 Meq Tablet) 40 meq PO UD PRN PRN Reason: Potassium < 3 Senna (Sennosides 1 Tablet) 2 tab PO DAILYP PRN PRN Reason: Constipation Sodium Chloride (0.9 % Sodium Chloride 10 Ml Syringe) 10 ml IV Q8 [facility] Last Admin: 12/22/21 21:46 Dose: Not Given Documented by: A/P Narrative A/P Narrative: A: *CVA Left hemisphere w/Expressive aphasia: *Hypertensive on admit: / above, not on home BP medications although I see HTN reported in her PMH -has come down on own *PARAM, mild: awaiting sleep study to get cpap machine *HLD: P: -Permissive hypertension 24-48 -ASA, Statin high dose -echo pending -neurochecks -pt/ot/st eval -ppx: lovenox Time Spent With Patient Time: Total time spent is greater than 50% in coordination of care (as documented) at patient's floor/unit and/or counseling patient: QUALITY Stroke Onset of Symptoms Date: 12/19/21 Symptom Onset Unknown: Yes VTE Deep Vein Thrombosis/Pulmonary Embolism Present on Admission: No
[2021-12-23] MEDS: 0.9 % SODIUM CHLORIDE 10 ML SYRINGE IV SCH ×3 (09:27→21:49)
[2021-12-23] MEDS: DOCUSATE SODIUM 100 MG CAPSULE PO SCH ×2 (09:28→21:49)
[2021-12-23] MEDS: ASPIRIN 81 MG TAB.CHEW PO SCH (09:28)
[2021-12-23] MEDS: ENOXAPARIN 40 MG/0.4 ML SYRINGE SQ SCH (09:28)
--- NOTE | 2021-12-23 17:19 | EKG ---
[facility] Test Date: 2021-12-22 Pat Name: Mindi Holly Department: ED Room: Gender: Female Customer Relations Consultant: : 1940 Requested By: Feliberto Harden Order Number: [id number] Reading MD: Mainor Hartman Measurements Intervals [place] Rate: 73 P: 89 TN: 211 QRS: 79 QRSD: 90 T: 26 QT: 373 QTc: 411 Interpretive Statements Sinus rhythm Electronically Signed On 12-23-2021 17:19:28 PST by Mainor Hartman /store/[email or web address]/[id number]
[2021-12-23] MEDS: ATORVASTATIN 40 MG TABLET PO SCH (21:49)
[2021-12-24] MEDS: 0.9 % SODIUM CHLORIDE 10 ML SYRINGE IV SCH (05:40)
[2021-12-24] MEDS: ASPIRIN 81 MG TAB.CHEW PO SCH (08:33)
[2021-12-24] MEDS: ENOXAPARIN 40 MG/0.4 ML SYRINGE SQ SCH (08:33)
[2021-12-24] MEDS: DOCUSATE SODIUM 100 MG CAPSULE PO SCH (08:33)
--- NOTE | 2021-12-24 12:03 | Discharge Summary ---
Discharge Provider Provider Patient information: Note initiated : 12/24/21 at 11:59 am Service Date, if different from initiated Date: [] Patient: Mindi Holly 81 y/o F admitted on 12/22/21 for cognitive issues. Chief Complaint: [] Date of admission: 12/22/21 15:56 Discharge date: 12/24/21 Primary care physician: Byron Ray M.D., F.A.A.F.P. Consults: 12/22/21 Consult to Physician [CONS] Stat Comment: Consulting Provider: Federico Odell Reason For Exam: Physician to Consult Discharge Meds Discharge Medications Home Medications ascorbate calcium (vitamin C) 500 mg tablet 500 mg PO DAILY 09/29/15 [History Confirmed 12/22/21 Last Taken 12/21/21] cholecalciferol (vitamin D3) 25 mcg (1,000 unit) capsule 1,000 unit PO QDAY 09/29/15 [History Confirmed 12/22/21 Last Taken 12/21/21] cyanocobalamin (vitamin B-12) 500 mcg tablet 500 mcg PO QDAY 09/29/15 [History Confirmed 12/22/21 Last Taken 12/21/21] multivitamin 1 tab-cap PO QDAY 09/29/15 [History Confirmed 12/22/21 Last Taken 12/21/21] aspirin 81 mg capsule 81 mg PO QDAY #60 cap 12/24/21 [Rx Last Taken Unknown] atorvastatin 40 mg tablet 40 mg PO QDAY #60 tab 12/24/21 [Rx Last Taken Unknown] COURSE Hospital Course Hospital course: Mindi Holly is a 81 year old female who presented to the ED with cognitive issues for 3 days including unable to figure out how to start her car. Yesterday neighbor saw the patient was not making sense when speaking. Sent over due to Covid test that was negative. Brought to the urgent care last night they told her she needed to go to the ED. In the ED she was found to be hypertensive on admission with systolic of 183. She is felt to have expressive aphasia. CT of the head noncontrast with age-related degeneration and white matter ischemic disease. CTA head/neck no significant stenosis. Urinalysis unremarkable. EKG with sinus rhythm. 3/ Patient with some bradycardia into the 40s but asymptomatic. Speech better today. Patient feeling better. 3/ PT recommended home health at discharge. The patient's son was at the bedside today and felt she was back to her baseline. Discharged to home with home health. New medications are Aspirin and Atorvastatin for acute ischemic stroke. Follow up with PCP-evaluate tolerance to high potency Atorvastatin dose. Follow up pending TTE report. Physical exam Head: Atraumatic, normal inspection. Eyes: normal appearance, no scleral icterus. Neck: full ROM Respiratory: no respiratory distress. Cardiovascular: normal rate and rhythm, S1, S2. GI/Abdominal: soft, nontender, no guarding. Extremities: full range of motion, nontender. Neurological: CN II-XII intact, intact motor, intact sensation. Psychiatric: normal mood. Skin: warm, normal color Discharge diagnosis: Acute right frontal lobe ischemic stroke Secondary discharge diagnosis: Expressive aphasia Time Spent with Patient Time attestation: Total time spent providing and/or coordinating discharge services: EXAM Constitutional Vitals: Temp Pulse Resp BP Pulse Ox 97.3 F 49 L 15 118/59 97 12/24/21 08:01 12/24/21 08:01 12/24/21 10:29 12/24/21 10:01 12/24/21 08:01 Discharge Plan Patient/Caregiver Discharge Instructions Activity: increase activity as tolerated Diet: Regular Diet Instructions: Aspirin (By mouth), Ischemic Stroke (GEN) Prescriptions: New atorvastatin 40 mg tablet 40 mg PO QDAY Qty: 60 4RF aspirin 81 mg capsule 81 mg PO QDAY Qty: 60 5RF Continued cyanocobalamin (vitamin B-12) 500 mcg tablet 500 mcg PO QDAY 0RF ascorbate calcium (vitamin C) 500 mg tablet 500 mg PO DAILY 0RF cholecalciferol (vitamin D3) 1,000 unit capsule 1,000 unit PO QDAY 0RF multivitamin capsule 1 tab-cap PO QDAY 0RF Follow Up Plan Follow up with: Rohan Vaugnh DO [Physician] - 12/31/21 9:15 am (Please check in at 9:00 am) Patient Disposition: Home Health Service Prognosis: Fair Overall status at discharge: patient is progressing back to baseline Discharge Orders: Discharge Order (Routine); Ordered 12/24/21 Ordered By: Zaid MARQUEZ VTE Deep Vein Thrombosis/Pulmonary Embolism Present on Admission: No
== END 2021-12-24 13:00 | disposition home health service (06) ==
LOC: ED 09:52 → ICU 09:52
PROVIDERS: ADMIT Internal Medicine; ATTEND Internal Medicine